=== PATIENT | female | born 1980 | race Caucasian/White ===

== ENCOUNTER 2025-02-07 11:32 | Emergency (ER) | payer MEDICAID, OTHER ==
[~2025-02-07] VITALS: Ht 152.4 cm; Wt 45.4 kg
[2025-02-07 11:45] VITALS: BP 120/84; TEMP 98.6; O2SAT 99
[2025-02-07] MEDS ORDERED: IBUP-1955 PO (12:38)
== END 2025-02-07 12:47 | disposition home or self-care (01) ==
LOC: ER 11:53
DX: J06.9 Acute upper respiratory infection, unspecified (principal); R05.9 Cough, unspecified; R09.81 Nasal congestion